=== PATIENT | female | born 1960 | race Caucasian/White ===

== ENCOUNTER 2022-07-09 02:47 | Emergency (ER) | payer OTHER ==
[2022-07-09 03:33] VITALS: BP 148/79; PULSE 74; RESP 18; TEMP 98; BMI 20.5
== END 2022-07-09 03:54 | disposition home or self-care (01) ==
LOC: JER 02:47
DX: T50.901A Poisoning by unspecified drugs, medicaments and biological substances, accidental (unintentional), initial encounter (principal)
CPT/HCPCS: 99281-25